=== PATIENT | male | born 1980 | race Caucasian/White ===

== ENCOUNTER 2022-02-17 23:23 | Emergency (ER) | payer SELFPAY ==
[2022-02-17 23:44] VITALS: BP 108/57; PULSE 80; RESP 18; TEMP 98; BMI 24.2
[2022-02-18] MEDS ORDERED: ACETAMINOPHEN 500 MG TABLET (FP) PO ONE (00:14)
[2022-02-18] MEDS ORDERED: ACETAMINOPHEN 325 MG TABLET (FP) ONE (00:17)
[2022-02-18] MEDS ORDERED: LIDOCAINE 5% TOPICAL PATCH TP ONE (00:21)
[2022-02-18] MEDS ORDERED: KETOROLAC TROMETHAMINE 15 MG/ML VIAL IM ONE (00:23)
[2022-02-18] MEDS ORDERED: KETOROLAC TROMETHAMINE 15 MG/ML VIAL ONE (00:25)
[2022-02-18] MEDS ORDERED: LIDOCAINE 5% TOPICAL PATCH ONE (00:26)
[2022-02-18] MEDS ORDERED: LIDOCAINE PATCH REMOVAL MC SCH (22:00)
== END 2022-02-18 01:36 | disposition left against medical advice (07) ==
LOC: JER 23:23
PROC: 3E023GC Introduction of Other Therapeutic Substance into Muscle, Percutaneous Approach (ICD-10-PCS; principal; 2022-02-17)
DX: R51.9 Headache, unspecified (principal)
CPT/HCPCS: 99284-25